=== PATIENT | female | born 1935 | race Caucasian/White ===

== ENCOUNTER → 2019-12-26 | Outpatient (CLI) | payer MEDICARE ==
--- NOTE | 2019-12-26 16:40 | Diagnostic Imaging Report ---
EXAM: Renal Ultrasound INDICATION: ^[id number] ^[id number] ^MICROSCOPIC HEMATURIA COMPARISON: None TECHNIQUE: Transverse and longitudinal images of the kidneys and bladder were obtained. FINDINGS: Right Kidney: Length: 10.5 cm Appearance: Normal echogenicity. Collecting system: No hydronephrosis Stones: None Cyst/Mass: Mid pole simple anechoic cyst measures 2.6 x 2.1 x 2.3 cm. Left Kidney: Length: None 0.3 cm Appearance: Normal echogenicity. Collecting system: No hydronephrosis Stones: None Cyst/Mass: Lower pole simple anechoic cyst measures 1.6 x 1.6 x 1.7 cm. Bladder: No mass or calculi. Bilateral ureteral jets visualized. Prevoid volume estimate of 351cc. IMPRESSION: No hydronephrosis or renal calculi. Bilateral simple renal cysts as above. Signed by: Abraham Hood MD on 12/26/2019 4:37 PM
== END ==
LOC: US 14:31
PROVIDERS: ATTEND Urology
DX: R31.21 Asymptomatic microscopic hematuria (principal)
CPT/HCPCS: 76770

== ENCOUNTER 2023-02-03 04:10 | Emergency (ER) | payer MEDICARE ==
[~2023-02-03] VITALS: Ht 172.7 cm; Wt 58.1 kg
[2023-02-03] MEDS ORDERED: SODIUM CHLORIDE 0.9% 1000ML 1,000 ML IV STA (04:13)
== END 2023-02-03 05:20 | disposition home or self-care (01) ==
LOC: ER 04:17
DX: R10.84 Generalized abdominal pain (principal); T36.1X5A Adverse effect of cephalosporins and other beta-lactam antibiotics, initial encounter
CPT/HCPCS: 99283